=== PATIENT | male | born 1995 | race Caucasian/White ===

== ENCOUNTER 2016-06-24 14:54 | Emergency (ER) | payer MEDICAID ==
[~2016-06-24] VITALS: Ht 188 cm; Wt 109.0 kg
[2016-06-24 21:24] VITALS: BP 132/72
== END 2016-06-24 21:25 | disposition home or self-care (01) ==
LOC: ER 15:50
DX: R10.9 Unspecified abdominal pain (principal); R11.2 Nausea with vomiting, unspecified; R19.7 Diarrhea, unspecified; F17.200 Nicotine dependence, unspecified, uncomplicated
CPT/HCPCS: 99283

== ENCOUNTER 2016-11-28 03:10 | Emergency (ER) | payer MEDICAID, OTHER ==
[~2016-11-28] VITALS: Ht 182.9 cm; Wt 103.0 kg
[2016-11-28] MEDS ORDERED: TETANUS, DIPHTHERIA, PERTUSSIS VAC/PF 0.5ML (>7YR OLD) IM ONE (05:45)
[2016-11-28] MEDS ORDERED: LIDOCAINE HCL 1%/EPI 1:200,000 30 ML VIAL MC ONE (05:45)
[2016-11-28] MEDS ORDERED: BACITRACIN ZINC OINT UDPKT TOP ONE (05:45)
[2016-11-28] MEDS ORDERED: IBUPROFEN 600MG TABLET PO ONE (05:45)
[2016-11-28 07:00] VITALS: BP 102/59
== END 2016-11-28 07:35 | disposition home or self-care (01) ==
LOC: ER 03:10
DX: S01.81XA Laceration without foreign body of other part of head, initial encounter (principal); S00.83XA Contusion of other part of head, initial encounter; Y04.0XXA Assault by unarmed brawl or fight, initial encounter; Y93.89 Activity, other specified; Y92.018 Other place in single-family (private) house as the place of occurrence of the external cause
CPT/HCPCS: 12011; 90471; 90715; 99283; Z7610

== ENCOUNTER 2024-02-12 21:15 | Emergency (ER) | payer SELFPAY ==
[~2024-02-12] VITALS: Ht 182.9 cm; Wt 127.0 kg
[2024-02-12 21:26] VITALS: O2SAT 99
[2024-02-12 22:35] LABS: CLARITY URINE CLEAR (CLEAR); COLOR URINE YELLOW (YELLOW); GLUCOSE URINE NEGATIVE (NEGATIVE); KETONES URINE NEGATIVE (NEGATIVE); LEUKOCYTE ESTERASE URINE NEGATIVE (NEGATIVE); NITRITE URINE NEGATIVE (NEGATIVE); OCCULT BLOOD URINE NEGATIVE (NEGATIVE); PH URINE 5.5 (4.5-8.0); PROTEIN URINE NEGATIVE (NEGATIVE)
[2024-02-12 23:55] LABS: BASOPHILS % 0.8 % (0.0-2.0); EOSINOPHILS % 3.2 % (0.0-5.0); HEMATOCRIT. 44.8 % (42.0-52.0); HEMOGLOBIN. 15.4 g/dL (14.0-18.0); LYMPHOCYTES % 33.6 % (20.0-50.0); MEAN CORPUSCULAR HEMOGLOBIN 29.7 pg (28.0-32.0); MEAN CORPUSCULAR HGB CONC 34.3 g/dL (31.0-37.0); MEAN CORPUSCULAR VOLUME 86.6 fL (80.0-94.0); MEAN PLATELET VOLUME 9.1 fl (7.4-10.4); MONOCYTES % 6.1 % (2.0-8.0); NEUTROPHILS % 56.3 % (40.0-76.0); PLATELET 166 x1000/uL (130-400); RED BLOOD CELL COUNT 5.18 mill/uL (4.7-6.1); RED CELL DISTRIBUTION WIDTH 13.3 % (11.6-14.6); WHITE BLOOD COUNT 6.8 x1000/uL (4.5-11.0)
[2024-02-13 00:03] LABS: CHLORIDE 109 mEq/L (98-107); SODIUM 142 mEq/L (136-145)
[2024-02-13 00:04] LABS: CARBON DIOXIDE 26 mEq/L (21-32)
[2024-02-13 00:05] LABS: CALCIUM 10.2 mg/dL (8.7-10.4)
[2024-02-13 00:09] LABS: GLUCOSE 91 mg/dL (70-105); UREA NITROGEN BLOOD 18 mg/dL (9-23)
[2024-02-13 00:11] LABS: ALANINE AMINOTRANSFERASE 79 IU/L (10-49); ALBUMIN 4.7 g/dL (3.2-4.8); ASPARTATE AMINOTRANSFERASE 36 IU/L (<34)
[2024-02-13 00:12] LABS: BILIRUBIN DIRECT 0.1 mg/dL (<=3.0); BILIRUBIN TOTAL 0.4 mg/dL (0.1-1.0); PROTEIN TOTAL 7.7 g/dL (6.0-8.3)
[2024-02-13] MEDS ORDERED: IBUP-2028 MT (00:26)
[2024-02-13 00:42] VITALS: BP 150/80; PULSE 86; RESP 18; TEMP 36.66960; O2SAT 98
== END 2024-02-13 00:43 | disposition home or self-care (01) ==
LOC: ER 21:15
DX: R10.30 Lower abdominal pain, unspecified (principal); R10.32 Left lower quadrant pain; R10.31 Right lower quadrant pain; R30.0 Dysuria; R26.2 Difficulty in walking, not elsewhere classified
CPT/HCPCS: 36415; 80048; 80076; 81003; 85025; 99283

== ENCOUNTER 2024-09-08 19:10 | Emergency (ER) | payer SELFPAY ==
[~2024-09-08] VITALS: Ht 182.9 cm; Wt 127.0 kg
[~2024-09-08 19:10] MED LIST: IBUP-2028 MT
[2024-09-08 19:18] VITALS: O2SAT 99
[2024-09-08 21:35] LABS: BASOPHILS % 0.6 % (0.0-2.0); EOSINOPHILS % 2.3 % (0.0-5.0); HEMATOCRIT. 44.4 % (42.0-52.0); LYMPHOCYTES % 22.6 % (20.0-50.0); MEAN CORPUSCULAR HEMOGLOBIN 29.4 pg (28.0-32.0); MEAN CORPUSCULAR HGB CONC 33.9 g/dL (31.0-37.0); MEAN CORPUSCULAR VOLUME 86.7 fL (80.0-94.0); MEAN PLATELET VOLUME 9.4 fl (7.4-10.4); MONOCYTES % 6.5 % (2.0-8.0); PLATELET 178 x1000/uL (130-400); RED BLOOD CELL COUNT 5.12 mill/uL (4.7-6.1); RED CELL DISTRIBUTION WIDTH 13.4 % (11.6-14.6); WHITE BLOOD COUNT 7.1 x1000/uL (4.5-11.0)
[2024-09-08 21:44] LABS: CHLORIDE 107 mEq/L (98-107); POTASSIUM 4.4 mEq/L (3.5-5.1); SODIUM 142 mEq/L (136-145)
[2024-09-08 21:45] LABS: CALCIUM 9.9 mg/dL (8.7-10.4); CARBON DIOXIDE 29 mEq/L (21-32)
[2024-09-08 21:50] LABS: GLUCOSE 94 mg/dL (70-105); UREA NITROGEN BLOOD 13 mg/dL (9-23)
[2024-09-08 22:03] LABS: TROPONIN I HIGH SENSITIVITY < 4 ng/L (3.0-53)
[2024-09-08 22:51] VITALS: BP 122/59; PULSE 64; RESP 20; TEMP 36.9; O2SAT 98
== END 2024-09-09 02:31 | disposition home or self-care (01) ==
LOC: ER 19:10
DX: R07.89 Other chest pain (principal); R00.2 Palpitations; H54.7 Unspecified visual loss; F10.90 Alcohol use, unspecified, uncomplicated; Y90.9 Presence of alcohol in blood, level not specified
CPT/HCPCS: 36415; 71045; 80048; 84484; 85025; 93005; 99285